=== PATIENT | female | born 1995 | race Caucasian/White ===

== ENCOUNTER → 2019-08-06 14:59 | Outpatient (BNVA) | payer MEDICAID, SELFPAY | PROVIDERS: Visit Provider Obstetrics & Gynecology | DX: Z34.90 Encounter for supervision of normal pregnancy, unspecified, unspecified trimester (principal) | CPT/HCPCS: 84702 ==

== ENCOUNTER 2019-08-09 17:40 | Observation (INO) | payer MEDICAID, SELFPAY ==
[2019-08-09] VITALS (13 sets, daily range): BP systolic 90–116; BP diastolic 44–77; PULSE 65–133; RESP 14–21; TEMP 36.4–36.9; O2SAT 97–100; BMI 18.6
--- NOTE | 2019-08-09 18:11 | USR_ITS ---
PROCEDURE INFORMATION: Exam: US , Transvaginal Exam date and time: 08/09/2019 7:01 PM Age: 23 years old Clinical indication: complicated by abdominal or pelvic pain; Right lower quadrant; First trimester; Gestational age or lmp: 7w; ; Prior surgery; Surgery date: 6+ months; Surgery type: Tubal; Additional info: ; Previous tubal ligation; R pelvis pain TECHNIQUE: Imaging protocol: Real-time transvaginal obstetrical ultrasound of the maternal pelvis and a first trimester with image documentation. Transvaginal imaging was used for better evaluation of the fetus and adnexa. COMPARISON: No relevant prior studies available. FINDINGS: Gestation: No visible intrauterine gestation. MATERNAL: Uterus: Nongravid appearing uterus with an endometrial stripe of of approximately 10 mm. No endometrial fluid. Normal transition zone. Dimensions of the uterus, including the cervix, approximately 94 mm by 47 mm by 55 mm. Left adnexa: Both ovaries appear sonographically unremarkable. Left ovary measures approximately 25 mm x 19 mm x 22 mm. The right ovary appears dominant measuring approximately 45 mm x 25 mm by 26 mm. Normal size follicle cyst.s Positive arterial flow to color and Doppler assessment. Other findings: No significant free fluid in the cul-de-sac. The lack of significant free fluid in the pelvis would tend to mitigate against an ectopic . US/US transvaginal 14221 IMPRESSION: No visible intrauterine gestation.
--- NOTE | 2019-08-09 18:11 | W.ED.ABDPA2 ---
HPI - Abdominal Pain General: Chief Complaint: Abdominal Pain Stated Complaint: and pain Time Seen by Provider: 08/09/19 18:03 Source: patient Mode of arrival: ambulatory Limitations: no limitations History of Present Illness: HPI narrative: Patient is a 23-year-old female who presents to ED today with complaints of right-sided lower abdominal pain that began approximately an hour ago. Patient states she is currently (pt is a G2 female; previous twin delivery via c section in 2019 in [place]). She states she had a tubal ligation last year after delivering twins. Patient states when the pain initially began she felt lightheaded, sweaty, dizzy, and felt the urge to defecate. She states now pain seems to have alleviated slightly and now describes as cramping. She is not having any vaginal bleeding. hCG performed 3 days ago was at 460. She has not seen an OB provider or had a confirmed IUP. She has not been running fevers. Denies nausea, vomiting. Patient's LMP was June 20. MD elicited complaint: abdominal pain Onset (ago): hour(s) Pain Consistency: constant Location: RLQ and Pelvis Radiation: none Migration to: no migration Exacerbating factors: nothing Relieving factors: nothing Associated Symptoms: Denies change in stool character, chills, diarrhea, dysuria, fever(s), heartburn, hematochezia, hematuria, melena, nausea and vomiting Related Data: Date of Last Menstrual Period: 06/21/19 Review of Systems Const: Denies: fever(s) or chills Card: Denies: chest pain Resp: Denies: dyspnea GI: Reports: abdominal pain; Denies: nausea, vomiting, heartburn, diarrhea, change in stool character, hematochezia, melena or white/light colored stool : Reports: pelvic pain; Denies: flank pain, difficulty voiding, dysuria, urinary frequency, urinary urgency, urinary hesitancy, hematuria, genital lesions, genital pruritis, vaginal odor, vaginal bleeding or vaginal discharge Musc: Denies: neck pain or back pain Skin/Breast: Denies: rash Neuro: Reports: dizziness (subsided now); Denies: headache(s), numbness in extremities, weakness in extremities or sensory changes PFSH ED PFSH: Social History Smoking and tobacco status: current every day smoker Female Reproductive History: Date of last menstrual period: 06/21/19 Physical Exam Const: COMMON NORMALS: no acute distress, average body habitus, patient oriented x3, no limitations, healthy appearing, alert and well nourished ORIENTATION/CONSCIOUSNESS: Yes oriented to person, Yes oriented to place and Yes oriented to time HENMT: COMMON NORMALS: normocephalic and atraumatic HEAD & SCALP: normocephalic and atraumatic Resp: COMMON NORMALS: normal respiratory effort and clear to auscultation bilaterally AUSCULTATION: clear to auscultation bilaterally Cardio: COMMON NORMALS: regular rate and regular rhythm RATE: regular rate RHYTHM: regular rhythm GI: COMMON NORMALS: Normal to inspection, nondistended, normoactive bowel sounds present, Soft to palpation, No hepatosplenomegaly present and no masses PALPATION: Yes Soft to palpation, Yes Tenderness to palpation present (GI) (R pelvis) Details: RLQ and Yes No hepatosplenomegaly present : COMMON NORMALS: Yes no CVA tenderness BLADDER/KIDNEY EXAM: Yes no CVA tenderness Back/Pelvis: COMMON NORMALS: no CVA tenderness Extremity: COMMON NORMALS: normal to inspection Neuro: SERGE COMA SCALE: document GCS findings [place] coma scale eye opening: Spontaneous Serge coma scale verbal response: Orientated Serge coma scale motor response: Obey commands Serge coma scale total score: 15 COMMON NORMALS: patient oriented x3 SENSORIUM/ORIENTATION: Yes alert, Yes oriented to person, Yes oriented to place and Yes oriented to time Skin: COMMON NORMALS: no rashes or lesions noted GENERAL SKIN EXAM: no rashes or lesions noted Course Vital Signs: Vital signs: Vital Signs Temperature 98.2 F 08/09/19 18:04 Pulse Rate 78 08/09/19 19:41 Respiratory Rate 14 08/09/19 19:41 Blood Pressure 100/58 08/09/19 19:41 Pulse Oximetry 99 08/09/19 19:41 MDM - Abdominal Pain MDM Narrative: Medical decision making narrative: hCG today is 704. According to central processing technician there was fluid located around patient's right ovary and free fluid in her pelvis more than what would be considered physiologic. At this point, based on patient's symptoms this is an ectopic until proven otherwise. I spoke to Dr. Chong who will take patient to the OR for a diagnostic laparoscopy. Lab Data: Labs: Lab Results 08/09/19 08/09/19 08/09/19 Range/Units 18:30 18:30 18:30 WBC 8.2 (4.0-10.0) 10^3/ uL RBC 4.79 (4.1-5.3) 10^6/u L Hgb 14.3 (11.5-15.3) g/dL Hct 43.2 (37.0-47.0) % MCV 90.2 (81-99) fL MCH 29.9 (28.0-34.0) pg MCHC 33.1 (30.0-36.0) g/dL RDW 12.6 (12.1-15.1) % Plt Count 239 (130-400) 10^3/c mm MPV 10.3 (7.4-10.4) fL Neut % (Auto) 71.1 % Lymph % (Auto) 22.1 % [place] % (Auto) 4.5 % Eos % (Auto) 1.5 % Baso % (Auto) 0.4 % Neut # (Auto) 5.8 (1.8-7.7) 10^3/u L Lymph # (Auto) 1.8 (0.8-4.8) 10^3/u L [place] # (Auto) 0.4 (0.2-0.9) 10^3/u L Eos # (Auto) 0.1 (0.0-0.8) 10^3/u L Baso # (Auto) 0.0 (0.0-0.1) 10^3/u L Nucleated RBC % (a uto) 0 % Nucleated RBCs # 0.0 /100WBC Sodium 139 (136-145) mmol/L Potassium 3.7 (3.5-5.1) mmol/L Chloride 103 (98-107) mmol/L Carbon Dioxide 24 (22-29) mmol/L Anion Gap 15.7 (5-19) BUN 21 H (6-20) mg/dL Creatinine 0.5 (0.5-0.9) mg/dL GFR Calculation 155.7 H (90-130) mL/min Glucose 104 (65-115) mg/dL Calculated Osmolal ity 285 (285-295) mOsm/k g Calcium 9.5 (8.5-10.5) mg/dL Total Bilirubin 0.2 (0.15-1.2) mg/dL AST 10 (0-32) U/L ALT 9 (0-33) U/L Alkaline Phosphata se 51 (35-105) IU/L Total Protein 6.9 (6.6-8.7) g/dL Albumin 5.2 (3.5-5.2) g/dL Globulin 1.7 (1.3-4.6) g/dL Ser , Robb i-Qnt 704.00 mIU/mL Urine Color Yellow (Yellow) Urine Appearance Sl hazy (CLEAR) Urine pH 6.5 (5-7) Ur Specific Gravit y 1.020 (1.005-1.030) Urine Protein Trace (Negative) Urine Glucose (UA) Norm (Normal) Urine Ketones 1+ H (Negative) Urine Blood 3+ H (Negative) Urine Nitrate Negative (Negative) Urine Bilirubin Neg (NEGATIVE) Urine Urobilinogen 1 H (Negative) mg/dL Ur Leukocyte Mariah ase Negative (Negative) Urine RBC Rare (0-2) /hpf Urine WBC 0-4 H (0-5) /hpf Ur Squamous Epith Cells 5-10 H (0-5) Urine Bacteria Trace (NONE) Urine Mucus 2+ Blood Type Rho(D) Type Antibody Screen 08/09/19 Range/Units 19:15 WBC (4.0-10.0) 10^3/ uL RBC (4.1-5.3) 10^6/u L Hgb (11.5-15.3) g/dL Hct (37.0-47.0) % MCV (81-99) fL MCH (28.0-34.0) pg MCHC (30.0-36.0) g/dL RDW (12.1-15.1) % Plt Count (130-400) 10^3/c mm MPV (7.4-10.4) fL Neut % (Auto) % Lymph % (Auto) % [place] % (Auto) % Eos % (Auto) % Baso % (Auto) % Neut # (Auto) (1.8-7.7) 10^3/u L Lymph # (Auto) (0.8-4.8) 10^3/u L [place] # (Auto) (0.2-0.9) 10^3/u L Eos # (Auto) (0.0-0.8) 10^3/u L Baso # (Auto) (0.0-0.1) 10^3/u L Nucleated RBC % (a uto) % Nucleated RBCs # /100WBC Sodium (136-145) mmol/L Potassium (3.5-5.1) mmol/L Chloride (98-107) mmol/L Carbon Dioxide (22-29) mmol/L Anion Gap (5-19) BUN (6-20) mg/dL Creatinine (0.5-0.9) mg/dL GFR Calculation (90-130) mL/min Glucose (65-115) mg/dL Calculated Osmolal ity (285-295) mOsm/k g Calcium (8.5-10.5) mg/dL Total Bilirubin (0.15-1.2) mg/dL AST (0-32) U/L ALT (0-33) U/L Alkaline Phosphata se (35-105) IU/L Total Protein (6.6-8.7) g/dL Albumin (3.5-5.2) g/dL Globulin (1.3-4.6) g/dL Ser , Robb i-Qnt mIU/mL Urine Color (Yellow) Urine Appearance (CLEAR) Urine pH (5-7) Ur Specific Gravit y (1.005-1.030) Urine Protein (Negative) Urine Glucose (UA) (Normal) Urine Ketones (Negative) Urine Blood (Negative) Urine Nitrate (Negative) Urine Bilirubin (NEGATIVE) Urine Urobilinogen (Negative) mg/dL Ur Leukocyte Mariah ase (Negative) Urine RBC (0-2) /hpf Urine WBC (0-5) /hpf Ur Squamous Epith Cells (0-5) Urine Bacteria (NONE) Urine Mucus Blood Type O Positive Rho(D) Type Positive Antibody Screen Negative Discharge Plan Discharge Patient Disposition: Admitted As Inpatient Clinical Impression: Ruptured ectopic Condition: Stable Discharge Date/Time: 08/09/19 20:25 Coding Level of Care Code ED Cushion Maker Hand for [facility] Fwd Exam Comprehensive
[2019-08-09 18:35] LABS: Basophils % 0.4 %; Eosinophils # 0.1 10^3/uL (0.0-0.8); Eosinophils % 1.5 %; Hematocrit 43.2 % (37.0-47.0); Hemoglobin 14.3 g/dL (11.5-15.3); Lymphocytes # 1.8 10^3/uL (0.8-4.8); Lymphocytes % 22.1 %; Mean Corpuscular HGB Conc 33.1 g/dL (30.0-36.0); Mean Corpuscular Hemoglobin 29.9 pg (28.0-34.0); Mean Corpuscular Volume 90.2 fL (81-99); Mean Platelet Volume 10.3 fL (7.4-10.4); Monocytes # 0.4 10^3/uL (0.2-0.9); Monocytes % 4.5 %; Neutrophils # 5.8 10^3/uL (1.8-7.7); Neutrophils % 71.1 %; Nucleated Red Blood Cells % 0 %; Platelet Count 239 10^3/cmm (130-400); Red Blood Count 4.79 10^6/uL (4.1-5.3); Red Cell Distribution Width 12.6 % (12.1-15.1); White Blood Count 8.2 10^3/uL (4.0-10.0)
[2019-08-09 19:04] LABS: Alanine Aminotransferase 9 U/L (0-33); Albumin Level 5.2 g/dL (3.5-5.2); Alkaline Phosphatase 51 IU/L (35-105); Anion Gap 15.7 (5-19); Aspartate Amino Transferase 10 U/L (0-32); Blood Urea Nitrogen 21 mg/dL (6-20); Calcium 9.5 mg/dL (8.5-10.5); Carbon Dioxide 24 mmol/L (22-29); Chloride 103 mmol/L (98-107); Globulin 1.7 g/dL (1.3-4.6); Glomerular Filtration Rate 155.7 mL/min (90-130); Glucose 104 mg/dL (65-115); Osmolality Calculated 285 mOsm/kg (285-295); Potassium 3.7 mmol/L (3.5-5.1); Sodium 139 mmol/L (136-145); Total Bilirubin 0.2 mg/dL (0.15-1.2); Total Protein 6.9 g/dL (6.6-8.7)
[2019-08-09 19:31] LABS: Urine Appearance SL Hazy (CLEAR); Urine Color Yellow (Yellow)
[2019-08-09 19:32] LABS: Add Urine Microscopic? YES; Bilirubin Urine Neg (NEGATIVE); Blood Urine 3+ (Negative); Glucose Urine UA Norm (Normal); Ketones Urine 1+ (Negative); Leukocyte Esterase Urine Negative (Negative); Nitrate Urine Negative (Negative); Protein Urine Trace (Negative); Urobilinogen Urine 1 mg/dL (Negative); pH Urine 6.5 (5-7)
[2019-08-09 19:33] LABS: RBC Urine RARE /hpf (0-2); WBC Urine 0-4 /hpf (0-5)
[2019-08-09 19:34] LABS: Add Urine Culture? No; Bacteria Urine TRACE; Mucus Urine 2+
[2019-08-09] MEDS: sodium chloride 0.9% 1,000 ML 999 ML IV (19:46)
--- NOTE | 2019-08-09 20:24 | ANES.PREANE2 ---
Pre-Anesthetic Assessment Pre-Anesthetic Assessment: Height/Weight: Height 1.6 m Weight 47.627 kg Temp Pulse Resp BP Pulse Ox 98.2 F 78 14 100/58 99 08/09/19 18:04 08/09/19 19:41 08/09/19 19:41 08/09/19 19:41 08/09/19 19:41 Preop Diagnosis: Ruptured ectopic Proposed Procedure: Operation Date: 08/09/19 20:05 Proposed Procedures p Laparoscopic Ectopic (Not Applicable) - Steffen Chong MD Familial anesthetic complications: none Was Beta Dylan taken within 24 hours: N/A Last intake: 08/09/19 at 1200 - chicken rice corn Social: Social History: Tobacco and No alcohol Packs per day: 0.5 ppd Exam: Pre-Anes Outpt Exam: alert, oriented x 3, clear to auscultation bilaterally and regular rate & rhythm Airway: Cervical ROM: WNL MP: 1 Dentition: Full Pulmonary: Pulmonary: None reported CV/HEM: CV/HEM: None reported : : None reported Hepatic: Hepatic: None reported GI: GI: None reported Metabolic: Metabolic: None reported Musc/skel: Musc/skel: Scoliosis Neuropsych: Neuropsych: None reported Anesthetic Plan: ASA status: 1E Anesthesia: General Risk of > 500 ml blood loss (7ml/kg in children): No Meds/Allergies Current Medications: Current Medications Generic Name Dose Route Start Last Admin Trade Name Freq PRN Reason Stop Dose Admin Sodium Chloride 1,000 mls @ 999 m ls/hr 08/09/19 19:40 08/09/19 19:46 Sodium Chloride 0.9% IV 08/09/19 20:40 999 mls/hr .Q1H1M ONE Administration PFSH Anesthesia PFSH: Social History Smoking and tobacco status: current every day smoker Female Reproductive History: Date of last menstrual period: 06/21/19 Data Anesthesia CBC & Chem 7: 08/09/19 18:30 08/09/19 18:30 Other Labs: Laboratory Results - last 48 hr 08/09/19 08/09/19 08/09/19 18:30 18:30 18:30 WBC 8.2 RBC 4.79 Hgb 14.3 Hct 43.2 MCV 90.2 MCH 29.9 MCHC 33.1 RDW 12.6 Plt Count 239 MPV 10.3 Neut % (Auto) 71.1 Lymph % (Auto) 22.1 [place] % (Auto) 4.5 Eos % (Auto) 1.5 Baso % (Auto) 0.4 Neut # (Auto) 5.8 Lymph # (Auto) 1.8 [place] # (Auto) 0.4 Eos # (Auto) 0.1 Baso # (Auto) 0.0 Nucleated RBC % (auto) 0 Nucleated RBCs # 0.0 Sodium 139 Potassium 3.7 Chloride 103 Carbon Dioxide 24 Anion Gap 15.7 BUN 21 H Creatinine 0.5 GFR Calculation 155.7 H Glucose 104 Calculated Osmolality 285 Calcium 9.5 Total Bilirubin 0.2 AST 10 ALT 9 Alkaline Phosphatase 51 Total Protein 6.9 Albumin 5.2 Globulin 1.7 Ser , Semi-Qnt 704.00 Urine Color Yellow Urine Appearance Sl hazy Urine pH 6.5 Ur Specific [place] 1.020 Urine Protein Trace Urine Glucose (UA) Norm Urine Ketones 1+ H Urine Blood 3+ H Urine Nitrate Negative Urine Bilirubin Neg Urine Urobilinogen 1 H Ur Leukocyte Esterase Negative Urine RBC Rare Urine WBC 0-4 H Ur Squamous Epith Cells 5-10 H Urine Bacteria Trace Urine Mucus 2+ Blood Type Rho(D) Type Antibody Screen 08/09/19 19:15 WBC RBC Hgb Hct MCV MCH MCHC RDW Plt Count MPV Neut % (Auto) Lymph % (Auto) [place] % (Auto) Eos % (Auto) Baso % (Auto) Neut # (Auto) Lymph # (Auto) [place] # (Auto) Eos # (Auto) Baso # (Auto) Nucleated RBC % (auto) Nucleated RBCs # Sodium Potassium Chloride Carbon Dioxide Anion Gap BUN Creatinine GFR Calculation Glucose Calculated Osmolality Calcium Total Bilirubin AST ALT Alkaline Phosphatase Total Protein Albumin Globulin Ser , Semi-Qnt Urine Color Urine Appearance Urine pH Ur Specific [place] Urine Protein Urine Glucose (UA) Urine Ketones Urine Blood Urine Nitrate Urine Bilirubin Urine Urobilinogen Ur Leukocyte Esterase Urine RBC Urine WBC Ur Squamous Epith Cells Urine Bacteria Urine Mucus Blood Type O Positive Rho(D) Type Positive Antibody Screen Negative Cardiac Studies: No Data to Display
--- NOTE | 2019-08-09 20:45 | SUR.PHASEI ---
pt awake alert on RA in PACU, pt denies pain, no obvious distress VSS.
--- NOTE | 2019-08-09 20:53 | P.PN_ITS ---
Subjective Subjective: Interval history: Pain in the lower right side Vitals/I&O/Wt Last Vital Signs Temp 98.4 F 08/09/19 20:30 Pulse 65 08/09/19 20:30 Resp 18 08/09/19 20:30 BP 98/57 08/09/19 20:30 Pulse Ox 100 08/09/19 20:30 Weight last 48 hrs Weight 47.627 kg Physical Exam Const: COMMON NORMALS: no acute distress, average body habitus, patient oriented x3, no limitations, healthy appearing, alert and well nourished GENERAL APPEARANCE: cooperative, comfortable and well kempt ORIENTATION/CONSCIOUSNESS: Yes awake, Yes oriented to person, Yes oriented to place and Yes oriented to time Resp: COMMON NORMALS: normal respiratory effort Cardio: COMMON NORMALS: regular rate and regular rhythm JUGULAR VENOUS DISTENTION: no JVD RATE: regular rate RHYTHM: regular rhythm GI: COMMON NORMALS: Normal to inspection, nondistended, normoactive bowel sounds present and Soft to palpation INSPECTION: Yes normal to inspection PALPATION: Yes Soft to palpation and Yes Tenderness to palpation present (GI) Details: RLQ PERCUSSION: normal to percussion : COMMON NORMALS: Yes no CVA tenderness BLADDER/KIDNEY EXAM: Yes no CVA tenderness Back/Pelvis: COMMON NORMALS: no CVA tenderness Neuro: COMMON NORMALS: patient oriented x3 SENSORIUM/ORIENTATION: Yes alert, Yes oriented to person, Yes oriented to place and Yes oriented to time Psych: APPEARANCE: Yes well kempt Data : 08/09/19 18:30 08/09/19 18:30 A&P Assessment and plan (1) Ruptured ectopic : 23-year-old female with a last menstrual. June 21 2019, status post tubal ligation a year ago came to the emergency room complaining of right lower quadrant pain and found to have a positive test and pelvic ultrasound showed fluid in the pelvic area.This is highly suspected ectopic . Emergent diagnostic laparoscopy recommended. Status: Acute Attestations Medical Necessity Statement*: in my medical professional opinion admitting diagnosis Coding Level of Care Code Acute Clinical Lab Specialist for [facility] Fwd Diagnoses Ruptured ectopic O00.90
[2019-08-09] MEDS: ceFAZolin 1,000 mg SDV 1000 MG IVP (21:54)
--- NOTE | 2019-08-09 22:08 | P.OP_ITS ---
Operative Report Date of procedure: August 09, 2019 Pre-op Diagnosis: Ruptured ectopic Post-op Findings: right ectopic Procedure Done: diagnostic laparoscopy. Laparoscopic right salpingectomy Specimens removed/disposition: fallopian tube with ectopic Surgeon: Steffen Chong Anesthesia: General Estimated blood loss (mL): 10 IV fluids (mL): 300 Urine output (mL): 100 Complications: none Condition: stable Disposition: PACU Brief History: 23-year-old female is status post laparoscopic permanent sterilization via falope rings. came to the emergency room with right lower quadrant pain on evaluation she had a positive test and a pelvic ultrasound showing fluid in the pelvis and around right adnexa Procedure: After informed consent, the patient was taken to the operating room where general anesthesia was administered. She was placed in the dorsal lithotomy position and prepped and draped in sterile fashion. Pre-Procedure Time-Out verifying the correct patient identity, correct procedure verified with consent, correct site and side, correct patient position, availability of correct implants and any special equipment or requirements was performed and acknowledge by the OR team. The patient was examined under anesthesia and found to have a normal uterus with normal adnexa. A weighted speculum was placed in the vagina, and the anterior lip of cervix was grasped with the single toothed tenaculum. A uterine manipulator was advanced into the endocervical canal and uterus. The tenaculum was removed after uterine manipulator was secured. The speculum was removed from the vagina. An intraumbilical incision was made with a scalpel. While tenting up on the abdomen, a Verres needle was admitted into the intra-abdominal cavity. A saline drop test was performed and noted to be within normal limits. Pneumoperitoneum was attained with 4 liters of carbon dioxide. The Verres needle was removed. A 5 mm Opitc view trocar and sleeve were admitted into the abdomen and laparoscopic confirmation of location was achieved. A second incision was in the LLQ and a 5 mm Opitc view trocar and sleeve were admitted into the abdomen under direct visualization. Then a third incision was made 3 cm above the symphysis pubis, and a 10 mm trocar sleeves were admitted into the abdomen under direct laparoscopic visualization without complication. A survey of the abdominal cavity revealed small amount of free blood in cul-de-sac and right fallopian tube ectopic . fallopian tube show falope ring in place. Then the right fallopian tube and mesosalpinx were grasped and the underlying mesosalpinx was cauterized and cut using the [employer] [place] device. Serial cauterization and cutting was used to separate the fallopian tube from the underlying mesosalpinx until it could be amputated cutting it approximated 2 cm from the cornua. Right fallopian tube and ectopic was removed from the abdominal cavity the suprapubic trocar port and sent to pathology. The pelvic area was copiously irrigated and cleared of all free blood. Good hemostasis was noted. Then the instruments were removed. The suprapubic trocar port was removed under direct visualization insuring good hemostasis. The left side trocar was also removed under direct visualization insuring good hemostasis. The carbon dioxide was allowed to escape from the abdomen. The intraumbilical trocar sleeve was withdrawn under visualization with laparoscope in the sleeve to insure hemostasis. The skin incisions were closed with 3-O Monocryl subcuticular stich and Xafen gill. The instruments were removed from the vagina, and excellent hemostasis was noted. The patient tolerated the procedure well, and sponge, lap and needle count were correct times two. The patient was taken to the recovery room in good condition.
--- NOTE | 2019-08-09 22:18 | ANE.PACU2 ---
Inpatient post-anesthesia follow up: Airway intact: Yes Vital signs: Temperature 98.4 F Pulse Rate 65 Respiratory Rate 18 Blood Pressure 98/57 Pulse Oximetry 100 Oxygen Delivery Me thod Room Air Oxygen Flow Rate Fraction of Inspir ed Oxygen Hydration adequate: Yes Nausea and vomiting: No Pain level: 1 Mental status: Baseline
[2019-08-09] MEDS: meperidine 50 mg/mL INJ 12.5 MG IVP (22:19)
--- NOTE | 2019-08-09 22:30 | SUR.PHASEI ---
PT AWAKE ALERT RESTING ON LT SIDE SINCE ARRIVAL, PT SHIVERING UNCONTROLLED WARM BLANKETS X 5 TO PT SEE MED GIVEN FOR SHIVERING PT NOW RESTING QUIETLY HR COMING DOWN PT ON RA SATS 97% BI DISTRESS ABD FLAT SOFT
--- NOTE | 2019-08-09 22:34 | SUR.PHASEI ---
PT NOT SHIVERING HR NOW 112 ST, SATS ON RA 98%
--- NOTE | 2019-08-09 23:05 | SUR.PHASEI ---
2250 PT TO FLOOR PER CART PT MOVES SELF TO BED NO DISTRESS PT DENIES PAIN, BP 102/61, HR NOW 100, 98% ON RA
--- NOTE | 2019-08-09 23:18 | P.HP_ITS ---
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 She refers she had a laparoscopic bilateral permanent sterilization approximally a year ago. Do an emergency room evaluation test was positive, transvaginal ultrasound subjective of possible ectopic rupture with free fluid in the right adnexal area and pelvic floor. Present Details Date of Last Menstrual Period: 06/21/19 Calculated Date of Delivery: 03/27/20 Gestational Age Based on Last Menstrual Period: 7 Review of Systems General: Reports: 10 or more systems reviewed and unremarkable except in HPI and below Const: Denies: fever(s) or chills Eyes: Denies: change in vision ENMT: Denies: throat pain Card: Denies: chest pain or palpitations Resp: Denies: dyspnea, productive cough or non-productive cough GI: Reports: abdominal pain (Right lower side), nausea and vomiting : Denies: urinary incontinence, hematuria, vaginal discharge, dysmenorrhea or irregular period Musc: Denies: neck pain or back pain Skin/Breast: Denies: rash or pruritus Neuro: Denies: headache(s) or numbness in extremities Psych: Denies: anxiety or depression Endo: Denies: polyuria Addi/Lymph: Denies: easy bruising All/Imm: Denies: throat swelling Medications/Allergies Home Medications Medication Instructions Recorded Confirmed Last Taken Type No Known Home Medications 08/06/19 08/09/19 Unknown History acetaminophen 650 mg PO Q6H PRN #60 tab 08/10/19 Unknown Rx docusate sodium 100 mg PO BID #30 cap 08/10/19 Unknown Rx hydrocodone-acetaminophen 1 - 2 tab PO Q6H PRN #20 tab 08/10/19 Unknown Rx ibuprofen 800 mg PO Q8H #60 tab 08/10/19 Unknown Rx Allergies Allergy/AdvReac Type Severity Reaction Status Date / Time No Known Allergies Allergy Verified 08/09/19 18:09 PFSH 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 PFSH: Surgical History (Updated 08/10/19 @ 17:06 by Steffen Chong MD) History of section History of tubal ligation Family History (Updated 08/10/19 @ 17:06 by Steffen Chong MD) Other History of section Social History Smoking and tobacco status: current every day smoker Vitals/I&O/Wt Last Vital Signs Temp 98.3 F 08/10/19 10:39 Pulse 81 08/10/19 10:39 Resp 16 08/10/19 10:39 BP 106/61 08/10/19 10:39 Pulse Ox 98 08/10/19 10:39 08/10/19 08/10/19 08/10/19 06:59 14:59 22:59 Intake Total 1581.667 / 1581.667 Output Total 300 / 510 400 / 400 Balance -300 / -410 1181.667 / 1181.667 Weight last 48 hrs Weight 47.627 kg Weight 47.627 kg Physical Exam Const: COMMON NORMALS: no acute distress, patient oriented x3, no limitations, healthy appearing, alert and well nourished EXAM LIMITATIONS: no altered mental status GENERAL APPEARANCE: cooperative, comfortable, well kempt and well developed NUTRITIONAL APPEARANCE: cachectic ORIEN TATION/CONSCIOUSNESS: Yes awake, Yes oriented to person, Yes oriented to place and Yes oriented to time HENMT: COMMON NORMALS: normocephalic and atraumatic HEAD & SCALP: normal to inspection Neck/C-Spine: COMMON NORMALS: no JVD GENERAL: Yes normal visual inspection, No lymphadenopathy and No JVD THYROID: abnormal thyroid Chest: COMMONS NORMALS: normal inspection of the chest Resp: COMMON NORMALS: normal respiratory effort, No retractions and No use of accessory muscles Cardio: COMMON NORMALS: no JVD PALPATION: normal PMI RATE: regular rate RHYTHM: regular rhythm GI: INSPECTION: Yes normal to inspection, No Abdominal wall edema, No abdominal distension, Yes incision and Yes scar (, periumbilical) PALPATION: Yes Soft to palpation and Yes Tenderness to palpation present (GI) Details: RLQ (Minimal) : SPECULUM EXAM - VAGINA: No vagina atrophic SPECULUM EXAM - CERVIX: No Cervical os open and Yes Cervical os closed BIMANUAL EXAM - VAGINA & UTERUS: Yes normal bimanual exam BIMANUAL EXAM - ADNEXA, OTHER: Yes tender on the right and Yes cul-de-sac fullness Back/Pelvis: COMMON NORMALS: no CVA tenderness Extremity: COMMON NORMALS: normal to inspection and full ROM Neuro: COMMON NORMALS: patient oriented x3 SENSORIUM/ORIENTATION: Yes alert Psych: COMMON NORMALS: mental status grossly normal Skin: COMMON NORMALS: no rashes or lesions noted Urinary Catheter Management^: Burns Latex: Cath Placed During This Visit: yes, but has since been removed by the nurse Date Urinary Catheter Removed: 08/09/19 Time Urinary Catheter Discontinued: 22:00 Data : 08/10/19 08:00 08/09/19 18:30 A&P Assessment and plan (1) Ruptured ectopic : 23-year-old Female with abdominal pain right lower quadrant pain, post permanent sterilization with positive test and ultrasound With pelvic and right adnexal free fluid, His highly suspicious for ruptured ectopic . Patient was counseled regarding these findings and the recommendation for an emergent diagnostic laparoscopy. He was counseled regarding diagnostic laparoscopy and the risk of possibility for right salpingectomy if an ectopic is found. The patient was informed of the risks and benefits of a diagnostic laparoscopy. The risks included, but were not limited to, bleeding, infection, injury to internal organs, possible blood transfusion, possible hysterectomy, and possible oophorectomy. The patient was counseled on the potential loss of fertility following unilateral salpingectomyw which is not a concern To the patients and she had a permanent tubal ligation. The patient was counseled on possible laparotomy and all other indicated procedures. The patient expressed understanding of the risks involved, all questions were answered, and the patient consented to the procedureAnd signed informed consent in the emergency room. 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
[2019-08-10] VITALS (72 sets, daily range): BP systolic 84–119; BP diastolic 45–73; PULSE 66–86; RESP 15–17; TEMP 36.7–36.8; O2SAT 96–100
[2019-08-10] MEDS: ketorolac 30 mg/mL INJ IVP (05:03)
[2019-08-10] MEDS: dextrose 5%-lactated ringers 1,000 ML 125 ML IV (05:06)
[2019-08-10 08:17] LABS: Hemoglobin 12.2 g/dL (11.5-15.3); Mean Corpuscular Hemoglobin 29.5 pg (28.0-34.0); Mean Corpuscular Volume 89.4 fL (81-99); Mean Platelet Volume 10.6 fL (7.4-10.4); Platelet Count 206 10^3/cmm (130-400); Red Blood Count 4.14 10^6/uL (4.1-5.3); Red Cell Distribution Width 12.7 % (12.1-15.1); White Blood Count 10.8 10^3/uL (4.0-10.0)
[2019-08-10] MEDS: docusate sodium 100 mg Capsule PO ×2 (09:30→17:32)
--- NOTE | 2019-08-10 16:51 | PM.OBGYDC ---
Discharge Providers JBOSS DEVELOPER Date of Admission: 08/09/19 21:54 Date of Discharge: 08/10/19 Attending Provider at Admission: Steffen Chong MD Attending Provider at Discharge: Steffen Chong MD Diagnoses at Discharge Discharge Diagnosis (1) Ruptured ectopic : Status: Acute Reason for Visit Reason for Visit: Reason For Visit: eptopic Hospital Course Hospital Course: 23-year-old female with an EGA at [] refers status post laparoscopic permanent sterilization via Falope rings over a year ago. Came to the emergency room with a chief complaint of right side abdominal pain. Upon evaluation the test was positive and ultrasound was performed suggestive of free fluid in pelvic cavity and right adnexa. An emergent diagnostic laparoscopy was performed for suspected rupture ectopic . An ectopic was noted in the right fallopian tube, while right fallopian tube was bleeding through the fimbria. A laparoscopic right salpingectomy was performed without complication. Overnight observation was uneventful. She is afebrile hemodynamically stable, tolerating diet well, ambulating without difficulty referring pain is minimal 2/10. Physical Exam Narrative: EXAM NARRATIVE: GA: Alert and oriented ?3. HEENT: WNL. Heart: Regular rate and rhythm. Lungs: Clear to auscultation bilaterally. Abdomen: Bowel sounds present, nontender, minimal tenderness, incision clean and dry, no redness, pain or edema. BUS ANALYST: No bleeding. Extremities: No edema, no cyanosis, no calves pain. Urinary Catheter Management^: Burns Latex: Cath Placed During This Visit: yes, but has since been removed by the nurse Date Urinary Catheter Removed: 08/09/19 Time Urinary Catheter Discontinued: 22:00 Discharge Data Data Completed and Pending: Completed Studies During Hospitalization Category Date Time Status US transvaginal 7 6830 Urgent Ultrasound 08/09/19 18:11 Completed Pending at discharge Category Date Time Status ES surgery / GI i mages Routine Exams 08/09/19 20:14 Taken Pathology: Surgic al [PTH] Routine Pth 08/09/19 22:32 Received Labs from last 24 hours 08/10/19 08/09/19 08/09/19 08:00 19:15 18:30 WBC 10.8 H RBC 4.14 Hgb 12.2 Hct 37.0 MCV 89.4 MCH 29.5 MCHC 33.0 RDW 12.7 Plt Count 206 MPV 10.6 H Neut % (Auto) Lymph % (Auto) [place] % (Auto) Eos % (Auto) Baso % (Auto) Neut # (Auto) Lymph # (Auto) [place] # (Auto) Eos # (Auto) Baso # (Auto) Nucleated RBC % (a uto) Nucleated RBCs # Sodium Potassium Chloride Carbon Dioxide Anion Gap BUN Creatinine GFR Calculation Glucose Calculated Osmolal ity Calcium Total Bilirubin AST ALT Alkaline Phosphata se Total Protein Albumin Globulin Ser , Robb i-Qnt Urine Color Yellow Urine Appearance Sl hazy Urine pH 6.5 Ur Specific Gravit y 1.020 Urine Protein Trace Urine Glucose (UA) Norm Urine Ketones 1+ H Urine Blood 3+ H Urine Nitrate Negative Urine Bilirubin Neg Urine Urobilinogen 1 H Ur Leukocyte Mariah ase Negative Urine RBC Rare Urine WBC 0-4 H Ur Squamous Epith Cells 5-10 H Urine Bacteria Trace Urine Mucus 2+ Blood Type O Positive Rho(D) Type Positive Antibody Screen Negative 08/09/19 08/09/19 18:30 18:30 WBC 8.2 RBC 4.79 Hgb 14.3 Hct 43.2 MCV 90.2 MCH 29.9 MCHC 33.1 RDW 12.6 Plt Count 239 MPV 10.3 Neut % (Auto) 71.1 Lymph % (Auto) 22.1 [place] % (Auto) 4.5 Eos % (Auto) 1.5 Baso % (Auto) 0.4 Neut # (Auto) 5.8 Lymph # (Auto) 1.8 [place] # (Auto) 0.4 Eos # (Auto) 0.1 Baso # (Auto) 0.0 Nucleated RBC % (a uto) 0 Nucleated RBCs # 0.0 Sodium 139 Potassium 3.7 Chloride 103 Carbon Dioxide 24 Anion Gap 15.7 BUN 21 H Creatinine 0.5 GFR Calculation 155.7 H Glucose 104 Calculated Osmolal ity 285 Calcium 9.5 Total Bilirubin 0.2 AST 10 ALT 9 Alkaline Phosphata se 51 Total Protein 6.9 Albumin 5.2 Globulin 1.7 Ser , Robb i-Qnt 704.00 Urine Color Urine Appearance Urine pH Ur Specific Gravit y Urine Protein Urine Glucose (UA) Urine Ketones Urine Blood Urine Nitrate Urine Bilirubin Urine Urobilinogen Ur Leukocyte Mariah ase Urine RBC Urine WBC Ur Squamous Epith Cells Urine Bacteria Urine Mucus Blood Type Rho(D) Type Antibody Screen Vitals: Last Vital Signs Temp 98.3 F 08/10/19 10:39 Pulse 81 08/10/19 10:39 Resp 16 08/10/19 10:39 BP 106/61 08/10/19 10:39 Pulse Ox 98 08/10/19 10:39 Discharge Plan Discharge Patient Disposition: Home, Self-Care Condition: Stable Prescriptions: New acetaminophen 325 mg Tablet 650 mg PO Q6H PRN (Reason: Mild Pain or Temp >100.4) Qty: 60 RF: 0 ibuprofen 800 mg Tablet 800 mg PO Q8H Qty: 60 RF: 0 hydrocodone-acetaminophen 5-325 mg Tablet 1 - 2 tab PO Q6H PRN (Reason: Moderate To Severe Pain) Qty: 20 RF: 0 docusate sodium 100 mg Capsule 100 mg PO BID Qty: 30 RF: 0 No Action No Known Home Medications RF: 0 Discharge Orders: Discharge Order (Routine); Ordered 08/10/19 Ordered By: Steffen Chong Referrals: Steffen Chong MD [Physician] - Discharge Activity: Increase activity as tolerated Patient Instructions: OB Discharge Report, OB Laproscopic Surgery - [facility], OB Food/Drug Interaction Guide Activity Restrictions/Additional Instructions: Pelvic rest for 6 weeks (no sex, no tampons, no vaginal douches). Return to the emergency room if any fever, increased bleeding or pain. Discharge Attestations JBOSS DEVELOPER Time Spent in Discharge Care*: greater than 30 min Coding Level of Care Code Acute Post Secondary Professional for [employer] [facility] Diagnoses Ruptured ectopic O00.90
[2019-08-10] MEDS: HYDROcodone-acetaminophen 5-325 mg Tablet PO (17:32)
== END 2019-08-10 17:35 | disposition home or self-care (01) ==
LOC: ER 20:11 → OR 20:19 → OBGYN 21:54
PROVIDERS: Emergency Medicine; Admitting Provider Obstetrics & Gynecology; Visit Provider Obstetrics & Gynecology
PROC: (CPT 59150; principal; 2019-08-09 20:05)
DX: O00.90 Unspecified ectopic pregnancy without intrauterine pregnancy (principal); O99.331 Smoking (tobacco) complicating pregnancy, first trimester
CPT/HCPCS: 59151; 12345; 36415; 76830; 80053; 81001; 84702; 85025; 85027; 86850; 86900; 88305; 96360; 96361; 96375; 99282; 99285; G0378; J0330; J0690; J1100; J1885; J2001; J2175; J2405; J2704; J3010; J3490; J7030

== ENCOUNTER → 2019-09-28 10:43 | Outpatient (BNVA) | payer MEDICAID, SELFPAY | PROVIDERS: Visit Provider Obstetrics & Gynecology | DX: Z72.51 High risk heterosexual behavior (principal) | CPT/HCPCS: 81025 ==

== ENCOUNTER → 2019-10-05 13:49 | Outpatient (BNVA) | payer MEDICAID, SELFPAY | PROVIDERS: Visit Provider Psychiatry & Neurology Psychiatry | DX: F33.0 Major depressive disorder, recurrent, mild (principal); F41.1 Generalized anxiety disorder; F17.200 Nicotine dependence, unspecified, uncomplicated; F15.21 Other stimulant dependence, in remission | CPT/HCPCS: 99204 ==

== ENCOUNTER → 2019-10-06 08:46 | Outpatient (BNVA) | payer MEDICAID, SELFPAY | PROVIDERS: Visit Provider Social Worker Clinical | DX: F33.0 Major depressive disorder, recurrent, mild (principal); F41.1 Generalized anxiety disorder | CPT/HCPCS: 90834 ==

== ENCOUNTER → 2019-10-20 08:27 | Outpatient (BNVA) | payer MEDICAID, SELFPAY | PROVIDERS: Visit Provider Social Worker Clinical | DX: F33.0 Major depressive disorder, recurrent, mild (principal); F41.1 Generalized anxiety disorder | CPT/HCPCS: 90834 ==

== ENCOUNTER → 2019-11-03 09:09 | Outpatient (BNVA) | payer MEDICAID, SELFPAY | PROVIDERS: Visit Provider Social Worker Clinical | DX: F33.0 Major depressive disorder, recurrent, mild (principal); F41.1 Generalized anxiety disorder | CPT/HCPCS: 90834 ==

== ENCOUNTER → 2019-11-16 09:28 | Outpatient (BNVA) | payer MEDICAID, SELFPAY | PROVIDERS: Visit Provider Psychiatry & Neurology Psychiatry | DX: F41.1 Generalized anxiety disorder (principal); F33.0 Major depressive disorder, recurrent, mild; F15.21 Other stimulant dependence, in remission; F17.200 Nicotine dependence, unspecified, uncomplicated; F20.0 Paranoid schizophrenia | CPT/HCPCS: 99213 ==

== ENCOUNTER → 2019-11-17 10:01 | Outpatient (BNVA) | payer MEDICAID, SELFPAY | PROVIDERS: Visit Provider Social Worker Clinical | DX: F33.0 Major depressive disorder, recurrent, mild (principal); F41.1 Generalized anxiety disorder | CPT/HCPCS: 90834 ==

== ENCOUNTER → 2019-12-01 09:55 | Outpatient (BNVA) | payer MEDICAID, SELFPAY | PROVIDERS: Visit Provider Social Worker Clinical | DX: F33.0 Major depressive disorder, recurrent, mild (principal); F41.1 Generalized anxiety disorder | CPT/HCPCS: 90834 ==

== ENCOUNTER → 2019-12-28 09:02 | Outpatient (BNVA) | payer MEDICAID, SELFPAY | PROVIDERS: Visit Provider Social Worker Clinical | DX: F33.0 Major depressive disorder, recurrent, mild (principal); F41.1 Generalized anxiety disorder | CPT/HCPCS: 90834 ==

== ENCOUNTER → 2020-02-08 08:03 | Outpatient (BNVA) | payer MEDICAID, SELFPAY | PROVIDERS: Visit Provider Psychiatry & Neurology Psychiatry | DX: F41.1 Generalized anxiety disorder (principal); F17.200 Nicotine dependence, unspecified, uncomplicated; F33.0 Major depressive disorder, recurrent, mild; F15.21 Other stimulant dependence, in remission | CPT/HCPCS: 99214 ==

== ENCOUNTER → 2020-04-04 08:13 | Outpatient (BNVA) | payer MEDICAID, SELFPAY | PROVIDERS: Visit Provider Psychiatry & Neurology Psychiatry | DX: F15.21 Other stimulant dependence, in remission (principal); F17.200 Nicotine dependence, unspecified, uncomplicated; F41.1 Generalized anxiety disorder; F33.0 Major depressive disorder, recurrent, mild | CPT/HCPCS: 99213 ==